=== PATIENT | male | born 1945 | race Native Hawaiian/Other Pacific Islander ===

== ENCOUNTER 2019-12-18 12:05 | Emergency (ER) | payer MEDICARE, OTHER ==
[~2019-12-18] VITALS: Ht 177.8 cm; Wt 124.7 kg
[~2019-12-18 12:05] MED LIST: TAMS.4ER
== END 2019-12-18 12:55 | disposition home or self-care (01) ==
LOC: ER 12:05
DX: K64.4 Residual hemorrhoidal skin tags (principal)
CPT/HCPCS: 99283